=== PATIENT | male | born 1945 | race African-American/Black ===

== ENCOUNTER → 2016-08-01 | Outpatient (CLI) | payer MEDICARE, OTHER ==
[2016-08-01 17:01] LABS: ABSOLUTE BASOPHILS # (AUTO) 0.1 10^3/uL (0.0-0.2); ABSOLUTE EOSINOPHILS # (AUTO) 0.3 10^3/uL (0.0-0.6); ABSOLUTE LYMPHOCYTES (AUTO) 1.9 10^3/uL (0.5-4.7); ABSOLUTE MONOCYTES (AUTO) 0.6 10^3/uL (0.1-1.4); ABSOLUTE NEUT (AUTO) 2.9 10^3/uL (1.7-8.2); BASOPHILS % (AUTO) 1.4 % (0-2); EOSINOPHILS % (AUTO) 4.6 % (0-6); HEMATOCRIT 42.4 % (37.9-51.0); HEMOGLOBIN 13.8 g/dL (13.5-17.0); LYMPHOCYTES % (AUTO) 32.9 % (13-45); MEAN CORPUSCULAR HEMOGLOBIN 26.3 pg (27.0-33.4); MEAN CORPUSCULAR HGB CONC 32.7 g/dL (32.0-36.0); MEAN CORPUSCULAR VOLUME 81 fl (80-97); MONOCYTES % (AUTO) 9.7 % (3-13); RED BLOOD COUNT 5.26 10^6/uL (4.35-5.55); RED CELL DISTRIBUTION WIDTH 15.4 % (11.5-14.0); SEGMENTED NEUTROPHILS % (AUTO) 51.4 % (42-78); WHITE BLOOD COUNT 5.7 10^3/uL (4.0-10.5)
[2016-08-01 17:27] LABS: ALANINE AMINOTRANSFERASE 23 U/L (21-72); ALBUMIN 4.4 g/dL (3.5-5.0); ALKALINE PHOSPHATASE 56 U/L (38-126); ANION GAP 12 (5-19); ASPARTATE AMINO TRANSFERASE 25 U/L (17-59); BILIRUBIN,DIRECT 0.2 mg/dL (0.0-0.4); BILIRUBIN,TOTAL 0.4 mg/dL (0.2-1.3); BLOOD UREA NITROGEN 15 mg/dL (7-20); CALCIUM 9.7 mg/dL (8.4-10.2); CARBON DIOXIDE 27 mmol/L (22-30); CHLORIDE 102 mmol/L (98-107); CREATININE RESULT 1.16 mg/dL (0.52-1.25); GLUCOSE 90 mg/dL (75-110); SODIUM 141.1 mmol/L (137-145); TOTAL PROTEIN 7.9 g/dL (6.3-8.2)
[2016-08-01 17:35] LABS: C-REACTIVE PROTEIN < 5.0 mg/L (<10.0)
[2016-08-01 17:40] LABS: ERYTHROCYTE SEDIMENTATION RATE 12 mm/hr (0-20)
== END ==
LOC: RAD 16:26
PROVIDERS: ATTEND Preventive Medicine Undersea and Hyperbaric Medicine
DX: L97.412 Non-pressure chronic ulcer of right heel and midfoot with fat layer exposed (principal)
CPT/HCPCS: 36415; 80053; 85025; 85652; 86140

== ENCOUNTER → 2016-08-09 | Outpatient (CLI) | payer MEDICARE, OTHER ==
--- NOTE | 2016-08-09 15:27 | XCELERA REPORT ---
[address] [address] Lower Extremity Arterial Evaluation Name: GUILLERMO MENDOZA Age: 70 yrs Gender: Male : 1945 Patient Status: Outpatient Patient Location: Study Date: 08/09/2016 09:16 AM Procedure: A color flow and duplex scan of the lower extremity arteries was performed bilaterally with velocity and waveform anaylsis. Ankle brachial indicies performed. Reason For Study: ULCER Ordering Physician: ROSA DUMONT Performed By: Pedrito Rodriguez Measurements and Calculations Right Left SHIRT HEMMER PSV 96.4 118.7 cm/sec Prox PFA PSV -303.8 -146.3 cm/sec Prox SFA PSV 25.1 105.6 cm/sec Mid SFA PSV -30.3 cm/sec Dist SFA PSV -28.2 -53.4 cm/sec Dist Pop A PSV 18.0 28.2 cm/sec Dist KEENAN PSV 53.5 32.1 cm/sec Mid MILITARY NURSE PSV 14.7 cm/sec Dist Emiliano A PSV 35.4 -33.4 cm/sec Michael Pedis PSV -18.7 28.7 cm/sec Right Side Arterial Evaluation Normal velocity and triphasic waveforms noted in the Common Femoral artery. Occluded Femoral artery with monophasic reconstitution to the infrageniculate vessels. Occluded mid Posterior Tibial with no distal flow. Stenosis noted in the Deep Femoral artery. Occlusion with reconstitution in the at the Femoral artery. With sequential disease. Ankle Brachial index is 0.5 in the DP.. Left Side Arterial Evaluation Normal velocity and triphasic waveforms noted in the Common Femoral artery. Occluded Femoral artery with monophasic reconstitution to the infrageniculate vessels. Occluded mid Posterior Tibial with no distal flow. Occlusion with reconstitution in the at the Femoral artery. With sequential disease. Ankle Brachial index is 0.59 in the DP.. Interpretation Summary Severe hemodynamically significant lesions in the bilateral lower extremities, on duplex imaging, at rest. : ROSA DUMONT > Rafael Duran
--- NOTE | 2016-08-09 15:31 | XCELERA REPORT ---
[address] [address] Lower Extremity Venous Evaluation Name: GUILLERMO MENDOZA Age: 70 yrs Gender: Male : 1945 Patient Status: Outpatient Patient Location: Study Date: 08/09/2016 09:50 AM Procedure: A bilateral duplex scan of the lower extremity veins was performed. The evaluation included responses to compression and other maneuvers with patient in the supine and standing positions to assess venous insufficiency. Reason For Study: ULCER Ordering Physician: ROSA DUMONT Performed By: Pedrito Rodriguez Right Sided Venous Evaluation Deep venous system evaluatiion shows patent veins with no obstruction or significant reflux identified. Sapheno Femoral junction: no reflux. Femoral vein reflux: no reflux. Greater Saphenous vein, Proximal thigh: reflux: no reflux. Greater Saphenous vein, Distal thigh: reflux: no reflux. Greater Saphenous vein, Proximal below knee: reflux: no reflux. No significant Perforators identified. Left Sided Venous Evaluation Deep venous system evaluatiion shows patent veins with no obstruction or significant reflux identified. Sapheno Femoral junction: no reflux. Femoral vein reflux: no reflux. Greater Saphenous vein, Proximal thigh: reflux: no reflux. Greater Saphenous vein, Distal thigh: reflux: no reflux. Greater Saphenous vein, Proximal below knee: reflux: no reflux. No significant Perforators identified. Interpretation Summary No duplex evidence of DVT or obstruction in the bilateral lower extremities. No refluxing veins identified. : ROSA DUMONT > Rafael Duran
== END ==
LOC: SP 08-08 15:33
PROVIDERS: ATTEND Preventive Medicine Undersea and Hyperbaric Medicine
DX: L97.402 Non-pressure chronic ulcer of unspecified heel and midfoot with fat layer exposed (principal)
CPT/HCPCS: 93925; 93970

== ENCOUNTER 2017-04-20 13:16 | Emergency (ER) | payer MEDICARE, OTHER ==
[2017-04-20 13:33] VITALS: BP 200/100
[2017-04-20] MEDS ORDERED: CLONIDINE HCL 0.2 MG TABLET PO ONE (14:13)
--- NOTE | 2017-04-20 14:15 | ER Document Report ---
ED Medical Screen (RME) - General Chief Complaint: Foot Pain Stated Complaint: PAIN,REDNESS AT SURGERY SITE Time Seen by Provider: 04/20/17 14:08 Mode of Arrival: Wheelchair Information source: Patient, Dr. Office Notes: 71-year-old male history of ulcer to left foot for which she is being watched at the wound care clinic presents with complaints of pain. Patient notes that he takes Neurontin and Motrin and these improve his pain, he did go to the wound care office today but they are closed since that he went to the [facility]. While he was at the [facility] they noted that he was hypertensive, patient states blood pressures normally over 200s but that he has been out of his clonidine patch for a few weeks. [facility] and they had concerns that the patient has not been on clonidine since January. They did not give him any medications in the office I have greeted and performed a rapid initial assessment of this patient. A comprehensive ED assessment and evaluation of the patient, analysis of test results and completion of the medical decision making process will be conducted by additional ED providers. PHYSICAL EXAMINATION: GENERAL: Well-appearing, well-nourished and in no acute distress. HEAD: Atraumatic, normocephalic. EYES: Pupils equal round extraocular movements intact, conjunctiva are normal. ENT: Nares patent NECK: Normal range of motion LUNGS: No respiratory distress Musculoskeletal: Normal range of motion NEUROLOGICAL: Normal speech, normal gait. PSYCH: Normal mood, normal affect. SKIN: Exam of left foot will wait in the back where patient can have dressing removed. TRAVEL OUTSIDE OF THE [place] IN LAST 30 DAYS: No - Related Data Allergies/Adverse Reactions: No Known Allergies Allergy (Unverified 04/20/17 13:17) Past Medical History - Social History Chew tobacco use (# tins/day): No Frequency of alcohol use: None Drug Abuse: None Renal/ Medical History: Denies: Hx Peritoneal Dialysis Physical Exam - Vital signs Vitals: Temp Pulse Resp BP Pulse Ox 98.2 F 90 18 200/100 H 97 04/20/17 13:31 04/20/17 13:31 04/20/17 13:31 04/20/17 13:31 04/20/17 13:31 Course - Vital Signs Vital signs: Temp Pulse Resp BP Pulse Ox 98.2 F 90 18 200/100 H 97 04/20/17 13:31 04/20/17 13:31 04/20/17 13:31 04/20/17 13:31 04/20/17 13:31
[2017-04-20 14:42] LABS: ABSOLUTE BASOPHILS # (AUTO) 0.1 10^3/uL (0.0-0.2); ABSOLUTE EOSINOPHILS # (AUTO) 0.8 10^3/uL (0.0-0.6); ABSOLUTE LYMPHOCYTES (AUTO) 1.5 10^3/uL (0.5-4.7); ABSOLUTE MONOCYTES (AUTO) 0.7 10^3/uL (0.1-1.4); ABSOLUTE NEUT (AUTO) 4.6 10^3/uL (1.7-8.2); EOSINOPHILS % (AUTO) 10.2 % (0-6); HEMATOCRIT 41.1 % (37.9-51.0); HEMOGLOBIN 13.8 g/dL (13.5-17.0); MEAN CORPUSCULAR HEMOGLOBIN 26.2 pg (27.0-33.4); MEAN CORPUSCULAR HGB CONC 33.5 g/dL (32.0-36.0); MEAN CORPUSCULAR VOLUME 78 fl (80-97); PLATELET COUNT 299 10^3/uL (150-450); RED BLOOD COUNT 5.27 10^6/uL (4.35-5.55); RED CELL DISTRIBUTION WIDTH 14.8 % (11.5-14.0); SEGMENTED NEUTROPHILS % (AUTO) 59.8 % (42-78); TOTAL CELLS COUNTED % (AUTO) 100 %; WHITE BLOOD COUNT 7.7 10^3/uL (4.0-10.5)
[2017-04-20 14:59] LABS: ALANINE AMINOTRANSFERASE 43 U/L (21-72); ALBUMIN 4.4 g/dL (3.5-5.0); ALKALINE PHOSPHATASE 82 U/L (38-126); ANION GAP 12 (5-19); ASPARTATE AMINO TRANSFERASE 40 U/L (17-59); BILIRUBIN,DIRECT 0.4 mg/dL (0.0-0.4); BILIRUBIN,TOTAL 0.5 mg/dL (0.2-1.3); BLOOD UREA NITROGEN 15 mg/dL (7-20); CALCIUM 10.1 mg/dL (8.4-10.2); CARBON DIOXIDE 27 mmol/L (22-30); CHLORIDE 101 mmol/L (98-107); GLUCOSE 88 mg/dL (75-110); POTASSIUM 4.6 mmol/L (3.6-5.0); SODIUM 140.1 mmol/L (137-145); TOTAL PROTEIN 8.6 g/dL (6.3-8.2)
[2017-04-20] MEDS ORDERED: GABAPENTIN 300 MG CAPSULE PO ONE (15:44)
--- NOTE | 2017-04-20 16:10 | ER Document Report ---
ED Extremity Problem, Lower - General Chief Complaint: Foot Pain Stated Complaint: PAIN,REDNESS AT SURGERY SITE Time Seen by Provider: 04/20/17 14:08 Mode of Arrival: Wheelchair Notes: 71-year-old male. 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 Followed by vascular surgery in [place]. Had extensive debridement approximately 6 months ago. Healing well. States that his pain has gotten a little bit worse. Has not taken his regular medications. Wanted to get it checked out. Denies any fevers, chills, sweats. Denies any pain in the calf. No change in the color of the skin. States that it is actually looking much better. TRAVEL OUTSIDE OF THE [place] IN LAST 30 DAYS: No - HPI Patient complains to provider of: Altered sensation, Pain. No: Swelling Location: Foot Severity: Mild Pain Level: 2 - Related Data Allergies/Adverse Reactions: No Known Allergies Allergy (Unverified 04/20/17 13:17) Past Medical History - General Information source: Patient, Office - Social History Smoking Status: Current Every Day Smoker Chew tobacco use (# tins/day): No Frequency of alcohol use: None Drug Abuse: None Family History: Reviewed & Not Pertinent Patient has suicidal ideation: No Patient has homicidal ideation: No - Past Medical History Cardiac Medical History: Reports: Hx Hypertension EENT Medical History: Reports: None Neurological Medical History: Reports: Other Renal/ Medical History: Denies: Hx Peritoneal Dialysis GI Medical History: Reports: None Musculoskeltal Medical History: Reports Other - Ulcer to right foot Past Surgical History: Reports: Hx Vascular Surgery - right leg DVT stent placed Review of Systems - Review of Systems Constitutional: No symptoms reported EENT: No symptoms reported Cardiovascular: No symptoms reported Respiratory: No symptoms reported Gastrointestinal: No symptoms reported Genitourinary: No symptoms reported Male Genitourinary: No symptoms reported Musculoskeletal: See HPI Skin: See HPI Hematologic/Lymphatic: No symptoms reported Neurological/Psychological: No symptoms reported Physical Exam - Vital signs Vitals: Temp Pulse Resp BP Pulse Ox 98.2 F 90 18 200/100 H 97 04/20/17 13:31 04/20/17 13:31 04/20/17 13:31 04/20/17 13:31 04/20/17 13:31 Interpretation: Normal - General General appearance: Appears well, Alert - HEENT Head: Normocephalic, Atraumatic Eyes: Normal Pupils: PERRL - Respiratory Respiratory status: No respiratory distress Chest status: Nontender Breath sounds: Normal Chest palpation: Normal - Cardiovascular Rhythm: Regular Heart sounds: Normal auscultation Murmur: No - Abdominal Inspection: Normal Distension: No distension Bowel sounds: Normal Tenderness: Nontender Organomegaly: No organomegaly - Back Back: Normal, Nontender - Extremities General upper extremity: Normal inspection, Nontender, Normal color, Normal ROM , Normal temperature General lower extremity: Normal inspection, Normal ROM, Normal temperature, Normal weight bearing, Other - There is a healing 1.5 cm ulcer to the dorsum of the right foot. No drainage. No cellulitis. Palpable pulses present of the dorsalis pedis on the right foot.. No: Nontender, Tender, Edema, Adele's sign - Neurological Neuro grossly intact: Yes Cognition: Normal Orientation: AAOx4 Benny Coma Scale Eye Opening: Spontaneous Benny Coma Scale Verbal: Oriented Benny Coma Scale Motor: Obeys Commands Benny Coma Scale Total: 15 Speech: Normal Motor strength normal: LUE, RUE, LLE, RLE Sensory: Normal - Skin Skin Temperature: Warm Skin Moisture: Dry Skin Color: Normal Course - Re-evaluation Re-evalutation: 04/20/17 16:09 This is a well-appearing male in no acute distress with a chronic ulcer to the right foot but does not appear infected. Labs are unremarkable. Likely this is his neuropathic pain which is gotten worse. I have given him some Neurontin. Patient's blood pressure was high on triage. Received some clonidine. Patient admits to not taking his regular medications over the last few days. 04/20/17 17:01 Labs are unremarkable. X-ray unremarkable. Patient has chronic issues here. Nothing further at this time from an emergency standpoint. - Vital Signs Vital signs: Temp Pulse Resp BP Pulse Ox 98.2 F 90 18 200/100 H 97 04/20/17 13:31 04/20/17 13:31 04/20/17 14:25 04/20/17 13:31 04/20/17 13:31 - Laboratory Result Diagrams: 04/20/17 14:30 04/20/17 14:30 Laboratory results interpreted by me: 04/20/17 04/20/17 14:30 14:30 MCV 78 L MCH 26.2 L RDW 14.8 H Eosinophils % 10.2 H Absolute Eosinophils 0.8 H Total Protein 8.6 H Discharge - Discharge Clinical Impression: Neuropathy of right foot Condition: Good Disposition: HOME, SELF-CARE Instructions: Neuropathy ([facility]) Additional Instructions: Please follow-up with your regular doctor soon as possible for repeat evaluation. Nothing seems abnormal today. You have pulses in your foot. Your blood counts are normal. X-ray normal. Continue with your regular medications. If symptoms are getting worse then please see your regular doctor. Referrals: MAYA STANLEY MD [Primary Care Provider] - Follow up in 3-5 days
--- NOTE | 2017-04-20 16:24 | RADIOLOGY REPORT (SQ) ---
EXAM DESCRIPTION: FOOT RIGHT COMPLETE COMPLETED DATE/TIME: 04/20/2017 4:13 pm REASON FOR STUDY: pain COMPARISON: 08/01/2016 NUMBER OF VIEWS: Three views. TECHNIQUE: AP, lateral and oblique radiographic images acquired of the right foot. LIMITATIONS: None. FINDINGS: MINERALIZATION: Osteopenic BONES: There is bony sclerosis at the base of the right 5th toe proximal phalanx, question old healed fracture. No periosteal new bone or aggressive demineralization near the 5th MTP joint to suggest o steomyelitis. Small radiopaque loose bodies are present along the medial aspect of the 5th MTP joint . No acute fracture or malalignment. No aggressive bony demineralization or new periosteal bone to sug gest osteomyelitis by plain film. SOFT TISSUES: No soft tissue swelling. No foreign body. OTHER: No other significant finding. IMPRESSION: No acute findings. Suspect an old healed right 5th toe proximal phalanx fracture TECHNICAL DOCUMENTATION: JOB ID: [id number] [employer]- All Rights Reserved
--- NOTE | 2017-04-20 16:41 | EKG REPORT ---
SEVERITY:- ABNORMAL ECG - SINUS RHYTHM LEFT ATRIAL ABNORMALITY LEFT ANTERIOR FASCICULAR BLOCK LEFT VENTRICULAR HYPERTROPHY BORDERLINE PROLONGED QT INTERVAL : Confirmed by: Keara Dobson 20-Apr-2017 16:41:16
== END 2017-04-20 17:39 | disposition home or self-care (01) ==
LOC: ER 13:16
DX: G62.9 Polyneuropathy, unspecified (principal); M79.671 Pain in right foot; Z98.890 Other specified postprocedural states; Z79.899 Other long term (current) drug therapy; F17.200 Nicotine dependence, unspecified, uncomplicated
CPT/HCPCS: 93005; 99284; 36415; 85025; 80053; 73630; 93010; A9270 ×2

== ENCOUNTER 2018-06-28 16:26 | Emergency (ER) | payer OTHER, MEDICARE ==
--- NOTE | 2018-06-28 17:28 | ER Document Report ---
ED Medical Screen (RME) - General Chief Complaint: Chest Pain Stated Complaint: CHEST PAIN,BACK PAIN Time Seen by Provider: 06/28/18 17:20 Primary Care Provider: RAULITO LEE PA-C [Primary Care Provider] - Follow up as needed Notes: Patient is a 72-year-old male that presents to the emergency department for chief complaint of chest pain and syncopal episode 2 days ago, denies having the symptoms today, but wanted to be checked out. ROS: Other than noted above, the 12 point review of systems was reviewed with the patient and were negative, all pertinent findings are included in the HPI. PHYSICAL EXAMINATION: Vital signs reviewed. GENERAL: Elderly male, no acute distress HEAD: Atraumatic, normocephalic. EYES: Pupils equal round extraocular movements intact, conjunctiva are normal. ENT: Nares patent NECK: Normal range of motion CV: Heart regular rate and rhythm LUNGS: No respiratory distress Musculoskeletal: Normal range of motion NEUROLOGICAL: Normal speech PSYCH: Normal mood, normal affect. MDM: Patient seen and examined for rapid initial assessment. Vital signs reviewed. A comprehensive ED assessment and evaluation of the patient, analysis of test results and completion of the medical decision making process will be conducted by additional ED providers. *Note is created using voice recognition software and may contain spelling, syntax or grammatical errors. TRAVEL OUTSIDE OF THE [place] IN LAST 30 DAYS: No - Related Data Allergies/Adverse Reactions: No Known Allergies Allergy (Verified 06/28/18 16:31) Past Medical History - Past Medical History Cardiac Medical History: Reports: Hx Hypertension Renal/ Medical History: Denies: Hx Peritoneal Dialysis Past Surgical History: Reports: Hx Vascular Surgery - right leg DVT stent placed Physical Exam - Vital signs Vitals: Temp Pulse Resp BP Pulse Ox 97.9 F 81 16 141/71 H 96 06/28/18 16:34 06/28/18 16:34 06/28/18 16:34 06/28/18 16:34 06/28/18 16:34 Course - Vital Signs Vital signs: Temp Pulse Resp BP Pulse Ox 97.9 F 81 16 141/71 H 96 06/28/18 16:34 06/28/18 16:34 06/28/18 16:34 06/28/18 16:34 06/28/18 16:34 Doctor's Discharge - Discharge Referrals: RAULITO LEE PA-C [Primary Care Provider] - Follow up as needed
--- NOTE | 2018-06-28 18:00 | RADIOLOGY REPORT (SQ) ---
EXAM DESCRIPTION: CHEST SINGLE VIEW COMPLETED DATE/TIME: 06/28/2018 5:39 pm REASON FOR STUDY: chest pain COMPARISON: None. EXAM PARAMETERS: NUMBER OF VIEWS: One view. TECHNIQUE: Single frontal radiographic view of the chest acquired. RADIATION DOSE: NA LIMITATIONS: None. FINDINGS: LUNGS AND PLEURA: No opacities, masses or pneumothorax. No pleural effusion. MEDIASTINUM AND HILAR STRUCTURES: No masses. Contour normal. HEART AND VASCULAR STRUCTURES: Heart normal in size. Normal vasculature. BONES: No acute findings. HARDWARE: None in the chest. OTHER: No other significant finding. IMPRESSION: NO ACUTE RADIOGRAPHIC FINDING IN THE CHEST. TECHNICAL DOCUMENTATION: JOB ID: [id number] [employer]- All Rights Reserved Reading location - IP/workstation name: [email or web address]
[2018-06-28 18:43] LABS: ABSOLUTE EOSINOPHILS # (AUTO) 0.2 10^3/uL (0.0-0.6); ABSOLUTE LYMPHOCYTES (AUTO) 2.2 10^3/uL (0.5-4.7); ABSOLUTE MONOCYTES (AUTO) 0.8 10^3/uL (0.1-1.4); ABSOLUTE NEUT (AUTO) 2.5 10^3/uL (1.7-8.2); BASOPHILS % (AUTO) 0.9 % (0-2); EOSINOPHILS % (AUTO) 3.5 % (0-6); HEMATOCRIT 42.2 % (37.9-51.0); HEMOGLOBIN 13.9 g/dL (13.5-17.0); LYMPHOCYTES % (AUTO) 38.8 % (13-45); MEAN CORPUSCULAR HEMOGLOBIN 26.1 pg (27.0-33.4); MEAN CORPUSCULAR HGB CONC 33.1 g/dL (32.0-36.0); MEAN CORPUSCULAR VOLUME 79 fl (80-97); MONOCYTES % (AUTO) 13.3 % (3-13); PLATELET COUNT 185 10^3/uL (150-450); RED BLOOD COUNT 5.33 10^6/uL (4.35-5.55); RED CELL DISTRIBUTION WIDTH 14.9 % (11.5-14.0); SEGMENTED NEUTROPHILS % (AUTO) 43.5 % (42-78); TOTAL CELLS COUNTED % (AUTO) 100 %; WHITE BLOOD COUNT 5.7 10^3/uL (4.0-10.5)
[2018-06-28 19:02] LABS: ALANINE AMINOTRANSFERASE 16 U/L (21-72); ALBUMIN 4.4 g/dL (3.5-5.0); ALKALINE PHOSPHATASE 66 U/L (38-126); ANION GAP 11 (5-19); ASPARTATE AMINO TRANSFERASE 36 U/L (17-59); BILIRUBIN,DIRECT 0.4 mg/dL (0.0-0.4); BILIRUBIN,TOTAL 0.8 mg/dL (0.2-1.3); BLOOD UREA NITROGEN 18 mg/dL (7-20); CARBON DIOXIDE 27 mmol/L (22-30); CHLORIDE 98 mmol/L (98-107); GLUCOSE 74 mg/dL (75-110); POTASSIUM 4.1 mmol/L (3.6-5.0); SODIUM 135.8 mmol/L (137-145); TOTAL PROTEIN 8.9 g/dL (6.3-8.2)
--- NOTE | 2018-06-28 20:13 | EKG REPORT ---
SEVERITY:- ABNORMAL ECG - SINUS RHYTHM ATRIAL PREMATURE COMPLEX LEFT ANTERIOR FASCICULAR BLOCK LEFT VENTRICULAR HYPERTROPHY BORDERLINE T ABNORMALITIES, INFERIOR LEADS : Confirmed by: Tamie Chan MD 28-Jun-2018 20:13:20
[2018-06-28] MEDS ORDERED: NITROGLYCERIN 5 MG (0.2 MG/HR) PATCH.TD24 TD ONE (22:18)
[2018-06-28 23:24] LABS: CREATINE KINASE MB 1.86 ng/mL (<4.55)
[2018-06-28] MEDS ORDERED: NORMAL SALINE 1000 ML 1,000 ML IV ONE (23:35)
[2018-06-28] MEDS ORDERED: DEXTROSE 50%-WATER 25 GM/50 ML DISP.SYRIN IV ONE (23:36)
[2018-06-28] MEDS ORDERED: NITROGLYCERIN 0.4 MG/TAB 25 TAB/BOTTLE SL ONE (23:43)
[2018-06-29 00:11] LABS: APPEARANCE,URINE CLEAR; BILIRUBIN,URINE NEGATIVE (NEGATIVE); COLOR,URINE YELLOW; GLUCOSE, URINE NEGATIVE (NEGATIVE); KETONES,URINE NEGATIVE (NEGATIVE); LEUKOCYTE ESTERASE,URINE NEGATIVE (NEGATIVE); NITRITE,URINE NEGATIVE (NEGATIVE); PROTEIN,URINE NEGATIVE (NEGATIVE); URINE SPECIFIC GRAVITY 1.021
[2018-06-29 02:33] LABS: ANION GAP 9 (5-19); BLOOD UREA NITROGEN 16 mg/dL (7-20); CALCIUM 9.2 mg/dL (8.4-10.2); CARBON DIOXIDE 23 mmol/L (22-30); CHLORIDE 106 mmol/L (98-107); CREATINE KINASE 277 U/L (55-170); GLUCOSE 97 mg/dL (75-110); POTASSIUM 3.5 mmol/L (3.6-5.0); SODIUM 138.2 mmol/L (137-145)
[2018-06-29 02:48] LABS: CREATINE KINASE MB 1.62 ng/mL (<4.55)
[2018-06-29 02:52] LABS: TROPONIN I < 0.012 ng/mL
--- NOTE | 2018-06-29 03:20 | ER Document Report ---
ED General - General Chief Complaint: Chest Pain Stated Complaint: CHEST PAIN,BACK PAIN Time Seen by Provider: 06/28/18 17:20 Primary Care Provider: KRYSTINA CALL MD [ACTIVE STAFF] - Follow up as needed RAULITO LEE PA-C [NO LOCAL MD] - Follow up as needed Mode of Arrival: Ambulatory Information source: Patient Cannot obtain history due to: Dementia Notes: Patient is a poor historian. He has history of dementia. He was sent from the [facility] because of chest pain. However on talking to the patient, he denies chest pain, shortness of breath, abdominal pain, nausea or vomiting. He is says that there is nothing wrong with him and he feels fine. Patient could not give medical history because of dementia. TRAVEL OUTSIDE OF THE [place] IN LAST 30 DAYS: No - HPI Onset: This afternoon Quality of pain: No pain Severity: None Pain Level: Denies Associated symptoms: None Exacerbated by: Denies Relieved by: Denies Similar symptoms previously: No Recently seen / treated by doctor: Yes - Related Data Allergies/Adverse Reactions: No Known Allergies Allergy (Verified 06/28/18 16:31) Past Medical History - Social History Smoking Status: Former Smoker Family History: Reviewed & Not Pertinent Patient has suicidal ideation: No Patient has homicidal ideation: No - Past Medical History Cardiac Medical History: Reports: Hx Hypertension Renal/ Medical History: Denies: Hx Peritoneal Dialysis Past Surgical History: Reports: Hx Vascular Surgery - right leg DVT stent placed Review of Systems - Review of Systems Constitutional: No symptoms reported EENT: No symptoms reported Cardiovascular: No symptoms reported Respiratory: No symptoms reported Gastrointestinal: No symptoms reported Genitourinary: No symptoms reported Male Genitourinary: No symptoms reported Musculoskeletal: No symptoms reported Skin: No symptoms reported Hematologic/Lymphatic: No symptoms reported Neurological/Psychological: No symptoms reported Physical Exam - Vital signs Vitals: Temp Pulse Resp BP Pulse Ox 97.9 F 81 16 141/71 H 96 06/28/18 16:34 06/28/18 16:34 06/28/18 16:34 06/28/18 16:34 06/28/18 16:34 Interpretation: Normal - General General appearance: Appears well, Alert - HEENT Head: Normocephalic, Atraumatic Eyes: Normal Pupils: PERRL - Respiratory Respiratory status: No respiratory distress Chest status: Nontender Breath sounds: Normal Chest palpation: Normal - Cardiovascular Rhythm: Regular Heart sounds: Normal auscultation Murmur: No - Abdominal Inspection: Normal Distension: No distension Bowel sounds: Normal Tenderness: Nontender Organomegaly: No organomegaly - Back Back: Normal, Nontender - Extremities General upper extremity: Normal inspection, Nontender, Normal color, Normal ROM, Normal temperature General lower extremity: Normal inspection, Nontender, Normal color, Normal ROM, Normal temperature, Normal weight bearing. No: Adele's sign - Neurological Neuro grossly intact: Yes Cognition: Normal Orientation: AAOx4 [place] Coma Scale Eye Opening: Spontaneous Benny Coma Scale Verbal: Oriented [place] Coma Scale Motor: Obeys Commands Benny Coma Scale Total: 15 Speech: Normal Motor strength normal: LUE, RUE, LLE, RLE Sensory: Normal - Psychological Associated symptoms: Normal affect, Normal mood - Skin Skin Temperature: Warm Skin Moisture: Dry Skin Color: Normal Course - Vital Signs Vital signs: Temp Pulse Resp BP Pulse Ox 97.9 F 59 L 16 144/87 H 99 06/28/18 16:34 06/28/18 18:29 06/28/18 18:29 06/29/18 01:44 06/28/18 18:29 - Laboratory Result Diagrams: 06/28/18 18:28 06/29/18 02:00 Laboratory results interpreted by me: 06/28/18 06/28/18 06/28/18 18:28 18:28 21:55 MCV 79 L MCH 26.1 L RDW 14.9 H Monocytes % 13.3 H Sodium 135.8 L Potassium Creatinine 1.27 H Est GFR (Non-Af Amer) 56 L Glucose 74 L ALT 16 L Creatine Kinase 298 H Total Protein 8.9 H Urine Blood Urine Urobilinogen 06/29/18 06/29/18 00:00 02:00 MCV MCH RDW Monocytes % Sodium Potassium 3.5 L Creatinine Est GFR (Non-Af Amer) Glucose ALT Creatine Kinase 277 H Total Protein Urine Blood SMALL H Urine Urobilinogen 2.0 H - Diagnostic Test Radiology reviewed: Reports reviewed - EKG Interpretation by Dc EKG shows normal: Sinus rhythm Rate: Normal - 76 Rhythm: NSR Voltage: Consistant with LVH When compared to previous EKG there are: No significant change Additional EKG results interpreted by me: 06/29/18 03:20 EKG is unchanged from old EKG on April 20, 2017. No STEMI. - Consults Dr Shanta Johnson Reason for consultation: 06/29/18 03:23 Consulted the signals collection technician home security professional Dr. Call. He recommended discharging the patient home and for the patient to follow-up in his clinic tomorrow. Discharge - Discharge Clinical Impression: Chest pain Qualifiers: Chest pain type: unspecified Qualified Code(s): R07.9 - Chest pain, unspecified Hypertension Qualifiers: Hypertension type: unspecified Qualified Code(s): I10 - Essential (primary) hyp ertension Condition: Stable Disposition: HOME, SELF-CARE Instructions: Chest Pain of Unclear Cause ([facility]), High Blood Pressure ([facility]) Additional Instructions: Please follow-up with your primary doctor or Dr Shanta Johnson (Limited Radiology Technician) tomorrow morning. Return to the emergency room if your condition worsens. Referrals: RAULITO LEE PA-C [NO LOCAL MD] - Follow up as needed KRYSTINA CALL MD [ACTIVE STAFF] - Follow up as needed
[2018-06-29 03:36] VITALS: BP 164/88
== END 2018-06-29 03:36 | disposition home or self-care (01) ==
LOC: ER 16:26
DX: R07.9 Chest pain, unspecified (principal); I10 Essential (primary) hypertension; M54.9 Dorsalgia, unspecified; F03.90 Unspecified dementia, unspecified severity, without behavioral disturbance, psychotic disturbance, mood disturbance, and anxiety; Z87.891 Personal history of nicotine dependence
CPT/HCPCS: 93005; 99285; 96361; 96374; 36415; 82553; 82550; 85025; 80048; 80053; 81001; 84484; 83880; 71045; 93010; J3490; J7030

== ENCOUNTER 2019-01-22 12:58 | Emergency (ER) | payer OTHER, MEDICARE ==
--- NOTE | 2019-01-22 13:25 | ER Document Report ---
ED Medical Screen (RME) - General Stated Complaint: ABNORMAL LABS/BLOOD PRESSURE Time Seen by Provider: 01/22/19 13:09 Primary Care Provider: QASIM DUTTA [Primary Care Provider] - Follow up as needed Notes: Patient is a 73-year-old male who presents to the emergency department with high blood pressure. Patient was seen by the [facility] this morning and was told to go to the emergency department for high blood pressure. Patient has been out of his amlodipine and losartan. Patient denies any headache, dizziness, tinnitus, body aches, or any other symptoms at this time. Exam: S1, S2. Clear lung sounds throughout. Alert and oriented. I have greeted and performed a rapid initial assessment of this patient. A comprehensive ED assessment and evaluation of the patient, analysis of test results and completion of medical decision making process will be conducted by an additional ED providers. TRAVEL OUTSIDE OF THE [place] IN LAST 30 DAYS: No - Related Data Allergies/Adverse Reactions: No Known Allergies Allergy (Verified 01/22/19 13:10) Past Medical History - Past Medical History Cardiac Medical History: Reports: Hx Hypertension Renal/ Medical History: Denies: Hx Peritoneal Dialysis Past Surgical History: Reports: Hx Vascular Surgery - right leg DVT stent placed Physical Exam - Vital signs Vitals: Temp Pulse Resp BP Pulse Ox 98.6 F 63 16 194/101 H 100 01/22/19 13:09 01/22/19 13:09 01/22/19 13:09 01/22/19 13:09 01/22/19 13:09 Course - Vital Signs Vital signs: Temp Pulse Resp BP Pulse Ox 98.6 F 63 16 194/101 H 100 01/22/19 13:09 01/22/19 13:09 01/22/19 13:09 01/22/19 13:09 01/22/19 13:09 Doctor's Discharge - Discharge [facility]errals[facility] [[facility] - Follow up as needed
[2019-01-22 14:00] LABS: ABSOLUTE EOSINOPHILS # (AUTO) 0.3 10^3/uL (0.0-0.6); ABSOLUTE MONOCYTES (AUTO) 0.6 10^3/uL (0.1-1.4); ABSOLUTE NEUT (AUTO) 2.9 10^3/uL (1.7-8.2); BASOPHILS % (AUTO) 0.8 % (0-2); EOSINOPHILS % (AUTO) 5.3 % (0-6); HEMATOCRIT 43.1 % (37.9-51.0); HEMOGLOBIN 14.1 g/dL (13.5-17.0); LYMPHOCYTES % (AUTO) 33.9 % (13-45); MEAN CORPUSCULAR HEMOGLOBIN 26.5 pg (27.0-33.4); MEAN CORPUSCULAR HGB CONC 32.8 g/dL (32.0-36.0); MEAN CORPUSCULAR VOLUME 81 fl (80-97); MONOCYTES % (AUTO) 9.9 % (3-13); PLATELET COUNT 205 10^3/uL (150-450); RED BLOOD COUNT 5.32 10^6/uL (4.35-5.55); SEGMENTED NEUTROPHILS % (AUTO) 50.1 % (42-78); TOTAL CELLS COUNTED % (AUTO) 100 %; WHITE BLOOD COUNT 5.9 10^3/uL (4.0-10.5)
[2019-01-22 14:19] LABS: ALBUMIN 4.5 g/dL (3.5-5.0); ALKALINE PHOSPHATASE 54 U/L (38-126); ANION GAP 10 (5-19); ASPARTATE AMINO TRANSFERASE 30 U/L (17-59); BILIRUBIN,DIRECT 0.2 mg/dL (0.0-0.4); BILIRUBIN,TOTAL 0.5 mg/dL (0.2-1.3); BLOOD UREA NITROGEN 10 mg/dL (7-20); CALCIUM 9.6 mg/dL (8.4-10.2); CARBON DIOXIDE 28 mmol/L (22-30); CHLORIDE 104 mmol/L (98-107); POTASSIUM 4.6 mmol/L (3.6-5.0); TOTAL PROTEIN 8.5 g/dL (6.3-8.2)
[2019-01-22 14:21] LABS: GLUCOSE 67 mg/dL (75-110)
[2019-01-22] MEDS ORDERED: LOSARTAN POTASSIUM 50 MG TABLET PO ONE (15:03)
[2019-01-22] MEDS ORDERED: AMLODIPINE BESYLATE 10 MG TABLET PO ONE (15:03)
[2019-01-22 15:05] VITALS: BP 195/101
--- NOTE | 2019-01-22 15:11 | ER Document Report ---
ED General - General Chief Complaint: High Blood Pressure Stated Complaint: ABNORMAL LABS/BLOOD PRESSURE Time Seen by Provider: 01/22/19 13:09 [facility] Provider: [facility] [Primary [facility] Provider] - Follow up as needed TRAVEL OUTSIDE OF THE [place] IN LAST 30 DAYS: No - HPI Notes: Patient is a 73-year-old male who presents emergency department for evaluation of high blood pressure. Evidently he was seen at the [facility] and his blood pressure was noted to be high. Patient denies any visual changes. No difficulty speaking or swallowing. He has no chest pain or shortness of breath. He is still urinating. He is moving his arms and legs without difficulty. He denies any pain of any sort. He states that there was some sort of mistake at the [facility] and he has not had his amlodipine or losartan since June. He states otherwise he is been taking his other medications as prescribed. - Related Data Allergies/Adverse Reactions: No Known Allergies Allergy (Verified 01/22/19 13:10) Home Medications: Atenolol 100 mg twice daily, Neurontin 300 mg 3 times daily, ibuprofen 800 mg 3 times daily, albuterol inhaler, 2 puffs as needed, Norvasc 10 mg daily, donepezil 10 mg daily, losartan 100 mill grams daily, pravastatin 20 mill grams daily, prazosin 1 mg at bedtime Past Medical History - General Information source: Patient - Social History Smoking Status: Current Every Day Smoker Family History: Reviewed & Not Pertinent Patient has suicidal ideation: No Patient has homicidal ideation: No - Past Medical History Cardiac Medical History: Reports: Hx Hypercholesterolemia, Hx Hypertension, Hx Peripheral Vascular Disease Renal/ Medical History: Denies: Hx Peritoneal Dialysis Psychiatric Medical History: Reports: Hx Dementia Past Surgical History: Reports: Hx Vascular Surgery - right leg DVT stent placed Review of Systems - Review of Systems Constitutional: No symptoms reported EENT: No symptoms reported Cardiovascular: No symptoms reported Respiratory: No symptoms reported Gastrointestinal: No symptoms reported Genitourinary: No symptoms reported Musculoskeletal: No symptoms reported Skin: No symptoms reported Neurological/Psychological: No symptoms reported Physical Exam - Vital signs Vitals: Temp Pulse Resp BP Pulse Ox 98.6 F 63 16 194/101 H 100 01/22/19 13:09 01/22/19 13:09 01/22/19 13:09 01/22/19 13:09 01/22/19 13:09 - Notes Notes: Vital signs reviewed, please refer to chart. Head is normocephalic, atraumatic. Pupils equal round, reactive to light. Neck is supple without meningismus. Hea rt is regular rate and rhythm. Lungs are clear to auscultation bilaterally. Abdomen is soft, nontender, normoactive bowel sounds throughout. Extremities without cyanosis, clubbing. Posterior calves are nontender. Peripheral pulses are equal. Skin is warm and dry. Patient is awake, alert, oriented x3. Cranial nerves II - XII are grossly intact without focal neurological deficits. Strength is plus 5 out of 5 bilateral upper and lower extremities. Sensation is intact. Reflexes symmetrical. Intact [id number], rapid alternating movements, [id number]. Course - Re-evaluation Re-evalutation: 01/22/19 15:08 Patient presents emergency department for evaluation. He has asymptomatic high blood pressure. He has been noncompliant with his medicines for several months. His blood pressure is high here but he says shows no signs of endorgan damage. Laboratory investigations are unremarkable with exception of some mildly low glucose. He is given some juice and feels fine. At this point I will write him a prescription for his atenolol and his losartan. He is to take this as directed. The importance of strict medication compliance was asked to the patient, and he voiced understanding. He is to follow-up with primary care at the [facility] in 1 to 2 weeks, return to the ED with worsening new concerning symptoms of any sort. - Vital Signs Vital signs: Temp Pulse Resp BP Pulse Ox 98.2 F 63 17 195/101 H 100 01/22/19 15:08 01/22/19 13:09 01/22/19 15:01 01/22/19 15:00 01/22/19 15:01 - Laboratory Result Diagrams: 01/22/19 13:43 01/22/19 13:43 Laboratory results interpreted by me: 01/22/19 01/22/19 13:43 13:43 MCH 26.5 L RDW 16.0 H Glucose 67 L Total Protein 8.5 H Discharge - Discharge Clinical Impression: Hypertension Qualifiers: Hypertension type: essential hypertension Qualified Code(s): I10 - Essential (primary) hypertension Condition: Stable Disposition: HOME, SELF-CARE Instructions: High Blood Pressure, Requiring Treatment ([facility]) Additional Instructions: Please take all your medications as prescribed. [facility] Return to the emergency department with worsening or new concerning sy mptoms of any sort. Prescriptions: Losartan Potassium 100 mg PO DAILY #30 tablet Amlodipine Besylate [Norvasc 10 mg Tablet] 10 mg PO DAILY #30 tablet [facility]errals: [facility] [Primary [facility] Provider] - Follow up as needed
== END 2019-01-22 15:21 | disposition home or self-care (01) ==
LOC: ER 12:58
DX: I10 Essential (primary) hypertension (principal); Z79.899 Other long term (current) drug therapy; F17.200 Nicotine dependence, unspecified, uncomplicated
CPT/HCPCS: 36415; 80053; 85025; 99283